=== PATIENT | male | born 1970 | race Two or more races ===

== ENCOUNTER 2017-02-06 20:08 | Emergency (ER) | payer MEDICARE ==
[~2017-02-06] VITALS: Ht 182.9 cm; Wt 81.6 kg
[~2017-02-06 20:08] MED LIST: CITA20TA3 PO; DIVA250T51 PO; NAP500T PO
[2017-02-06 20:41] LABS: Basophils # (auto) 0 uL; Basophils % (auto) 0.5 % (0.0-2.0); CONDITION Y; Eosinophils # (auto) 0 uL; Eosinophils % (auto) 0.7 % (0.0-7.0); Hematocrit 39.2 % (41.0-53.0); Hemoglobin 13.1 g/dL (13.5-17.5); Lymphocytes # (auto) 0.6 uL; Lymphocytes % (auto) 28.3 % (10.0-50.0); Mean Corpuscular Hemoglobin 28.7 pg (28.0-32.0); Mean Corpuscular Hgb Conc. 33.4 g/dL (32.0-36.0); Mean Corpuscular Volume 86.1 fL (80.0-100.0); Mean Platelet Volume 7.5 fL (7.4-10.4); Monocytes # (auto) 0 uL; Monocytes % (auto) 2.3 % (0.0-12.0); Neutrophils # (auto) 1.5 uL; Neutrophils % (auto) 68.2 % (37.0-80.0); Platelet Count (auto) 274 10^3/uL (140-450); Red Cell Distribution Width 14.3 % (11.6-16.0); White Blood Cell 2.1 10^3/uL (4.4-10.8)
[2017-02-06 21:01] LABS: Albumin 3.5 g/dL (3.4-5.0); Amylase 53 U/L (25-115); Anion Gap 7 (5-15); Aspartate Aminotransferase 18 U/L (15-37); BUN/Creatinine Ratio 14.3; Blood Urea Nitrogen 13 mg/dL (7-18); Calcium 8.7 mg/dL (8.5-10.1); Carbon Dioxide 27 mmol/L (21-32); Chloride 108 mmol/L (98-107); GFR African American 115 mL/min; GFR Non-African American 95 mL/min; Glucose 98 mg/dL (74-106); INR 1.04 (0.9-1.15); Magnesium 1.9 mg/dL (1.6-2.6); Partial Thromboplastin Time 27.1 sec (22.64-33.71); Potassium 3.6 mmol/L (3.5-5.1); Prothrombin Time 11.3 sec (9.37-12.3); Sodium 142 mmol/L (136-145)
[2017-02-06 21:04] LABS: Alkaline Phosphatase 55 U/L (45-117); Bilirubin, Total 0.3 mg/dL (0.2-1.0); Total Protein 8.8 g/dL (6.4-8.2)
[2017-02-07] MEDS ORDERED: SODIUM CHLORIDE 0.9% 1,000 ML IV ONE
[2017-02-07] MEDS ORDERED: SODIUM CHLORIDE 0.9% 500 ML IV ONE (02:45)
[2017-02-07 04:30] VITALS: BP 100/62
== END 2017-02-07 04:48 | disposition home or self-care (01) ==
LOC: EDBD 20:08 → ER 20:18
DX: R10.9 Unspecified abdominal pain (principal); F15.10 Other stimulant abuse, uncomplicated; F12.10 Cannabis abuse, uncomplicated; Z59.0 Homelessness
CPT/HCPCS: 36415; 71010; 74176; 80053; 80320; 82150; 83690; 83735; 84484; 85025; 85610; 85730; 93005; 96360; 96361; 99285; J7030; J7040

== ENCOUNTER 2017-04-09 13:23 | Emergency (ER) | payer MEDICARE ==
[~2017-04-09] VITALS: Ht 167.6 cm; Wt 70.3 kg
[2017-04-09 14:58] VITALS: BP 118/73
[2017-04-09] MEDS ORDERED: LORazepam 0.5 MG TAB PO ONE (15:15)
== END 2017-04-09 15:28 | disposition home or self-care (01) ==
LOC: ER 13:27
DX: F41.9 Anxiety disorder, unspecified (principal); Z76.0 Encounter for issue of repeat prescription; F31.9 Bipolar disorder, unspecified; F12.10 Cannabis abuse, uncomplicated; F15.10 Other stimulant abuse, uncomplicated; Z59.0 Homelessness

== ENCOUNTER → 2017-04-09 | Emergency (ER) | payer MEDICARE | END | disposition left against medical advice (07) | LOC: EDUNIT# 11:20 → EDBD 11:37 → ER 11:37 | DX: R11.2 Nausea with vomiting, unspecified (principal); Z53.21 Procedure and treatment not carried out due to patient leaving prior to being seen by health care provider ==